=== PATIENT | female | born 1990 | race Caucasian/White ===

== ENCOUNTER 2017-04-21 22:20 | Emergency (ER) | payer MEDICARE, OTHER ==
[~2017-04-21] VITALS: Ht 157.5 cm; Wt 107.0 kg
[~2017-04-21 22:20] MED LIST: BENZ0.5T PO; BUSP15TA PO; PRAZ1CAP2 PO; RISP1TAB3 PO; SERT50TA8 PO
--- NOTE | 2017-04-21 23:09 | ED.ADGEN ---
Past History Past Medical History: Bipolar, Depression, Other Past Surgical History: No Surgical History Alcohol Use: Heavy Drug Use: Marijuana Adult General Chief Complaint Chief Complaint syncope HPI HPI Patient is a [26] year old [female] who presents with syncope. she states she fell approx 15 times today. she has been lightheaded with epigastric pain and "pouring" blood in stools. she states the blood is red and dark. she has had this for about 1 month. she is to see surgeon for colonoscopy and EGD but has been unable to f/u for it. she was dx with breast cancer 2 months ago in [place], [place] but left for a family emergency and hasn't followed up for recommendations on treatment either. she is on 15 meds but doesn't know any of them. she has a hx of WPW also. Review of Systems Review of Systems Constitutional: Denies fever or chills [] Eyes: Denies change in visual acuity, redness, or eye pain [] HENT: Denies nasal congestion or sore throat [] Respiratory: Denies cough or shortness of breath [] Cardiovascular: No additional information not addressed in HPI [] GI: Denies abdominal pain, nausea, vomiting, bloody stools or diarrhea [] : Denies dysuria or hematuria [] Musculoskeletal: Denies back pain or joint pain [] Integument: Denies rash or skin lesions [] Neurologic: Denies headache, focal weakness or sensory changes [] Endocrine: Denies polyuria or polydipsia [] Current Medications Current Medications Current Medications Medications (Trade) Dose Ordered Sig/Kenneth Start Time Stop Time Status Last Admin Dose Admin Pantoprazole Sodium (Protonix Vial) 40 mg 1X ONCE 04/21/17 23:30 04/21/17 23:31 DC 04/21/17 23:17 40 MG Sodium Chloride 1,000 ml @ 1,000 mls/hr 1X ONCE 04/21/17 23:30 04/22/17 00:29 DC 04/21/17 23:08 1,000 MLS/HR Allergies Allergies Allergies Coded Allergies Type Severity Reaction Last Updated Verified No Known Drug Allergies 11/19/14 No Physical Exam Physical Exam Constitutional: Well developed, well nourished, no acute distress, non-toxic appearance. [] HENT: Normocephalic, atraumatic, bilateral external ears normal, oropharynx moist, no oral exudates, nose normal. [] Eyes: PERRLA, EOMI, conjunctiva normal, no discharge. [] Neck: Normal range of motion, no tenderness, supple, no stridor. [] Cardiovascular:Heart rate regular rhythm, no murmur [] Lungs & Thorax: Bilateral breath sounds clear to auscultation [] Abdomen: Bowel sounds normal, soft, tenderness to epigastric and suprapubic with epigastric area being the most pain. no masses, no pulsatile masses. rectal exam showed no hemorrhoids or fissures, nontender exam, brown stool on glove [] Skin: Warm, dry, no erythema, no rash. [] Back: No tenderness, no CVA tenderness. [] Extremities: No tenderness, no cyanosis, no clubbing, ROM intact, no edema. [] Neurologic: Alert and oriented X 3, normal motor function, normal sensory function, no focal deficits noted. [] Psychologic: Affect normal, judgement normal, mood normal. [] Current Patient Data Vital Signs Vital Signs Date Time Temp Pulse Resp B/P (MAP) Pulse Ox O2 Delivery O2 Flow Rate FiO2 04/22/17 01:06 72 16 131/92 (105) 98 Room Air 04/21/17 22:20 97.4 Lab Results Laboratory Tests Test 04/21/17 22:43 04/21/17 22:54 04/21/17 22:56 White Blood Count 9.7 x10^3/uL (4.0-11.0) Red Blood Count 5.11 x10^6/uL (3.50-5.40) Hemoglobin 14.5 g/dL (12.0-15.5) Hematocrit 43.0 % (36.0-47.0) Mean Corpuscular Volume 84 fL (79-100) Mean Corpuscular Hemoglobin 28 pg (25-35) Mean Corpuscular Hemoglobin Concent 34 g/dL (31-37) Red Cell Distribution Width 12.6 % (11.5-14.5) Platelet Count 179 x10^3/uL (140-400) Neutrophils (%) (Auto) 68 % (31-73) Lymphocytes (%) (Auto) 21 % (24-48) L Monocytes (%) (Auto) 5 % (0-9) Eosinophils (%) (Auto) 5 % (0-3) H Basophils (%) (Auto) 1 % (0-3) Neutrophils # (Auto) 6.6 x10^3uL (1.8-7.7) Lymphocytes # (Auto) 2.1 x10^3/uL (1.0-4.8) Monocytes # (Auto) 0.5 x10^3/uL (0.0-1.1) Eosinophils # (Auto) 0.5 x10^3/uL (0.0-0.7) Basophils # (Auto) 0.1 x10^3/uL (0.0-0.2) Prothrombin Time 11.2 SEC (9.4-11.4) Prothrombin Time INR 1.1 (0.9-1.1) Sodium Level 141 mmol/L (136-145) Potassium Level 3.3 mmol/L (3.5-5.1) L Chloride Level 107 mmol/L (98-107) Carbon Dioxide Level 25 mmol/L (21-32) Anion Gap 9 (6-14) Blood Urea Nitrogen 14 mg/dL (7-20) Creatinine 1.1 mg/dL (0.6-1.0) H Estimated GFR (Cockcroft-Gault) 61.0 BUN/Creatinine Ratio 13 (6-20) Glucose Level 113 mg/dL (70-99) H Calcium Level 8.2 mg/dL (8.5-10.1) L Total Bilirubin 0.3 mg/dL (0.2-1.0) Aspartate Amino Transferase (AST) 19 U/L (15-37) Alanine Aminotransferase (ALT) 24 U/L (14-59) Alkaline Phosphatase 62 U/L (46-116) Total Protein 6.9 g/dL (6.4-8.2) Albumin 3.6 g/dL (3.4-5.0) Albumin/Globulin Ratio 1.1 (1.0-1.7) Stool Occult Blood Negative (NEG) Urine Collection Type Unknown Urine Color Yellow Urine Clarity Clear Urine pH 6.0 Urine Specific [place] 1.025 Urine Protein Neg (NEG-TRACE) Urine Glucose (UA) Neg mg/dL (NEG) Urine Ketones (Stick) Neg mg/dL (NEG) Urine Blood Neg (NEG) Urine Nitrite Neg (NEG) Urine Bilirubin Neg (NEG) Urine Urobilinogen Dipstick 2 mg/dL (0.2 mg/dL) Urine Leukocyte Esterase Neg (NEG) Urine RBC 0 /HPF (0-2) Urine WBC Occ /HPF (0-4) Urine Squamous Epithelial Cells Few /LPF Urine Bacteria Few /HPF (0-FEW) Urine Opiates Screen Neg (NEG) Urine Methadone Screen Neg (NEG) Urine Barbiturates Neg (NEG) Urine Phencyclidine Screen Neg (NEG) Urine Amphetamine/Methamphetamine Neg (NEG) Urine Benzodiazepines Screen Neg (NEG) Urine Cocaine Screen Neg (NEG) Urine Cannabinoids Screen Neg (NEG) Urine Ethyl Alcohol Neg (NEG) EKG EKG HR 80, [id number]. RBBB. no stemi Radiology/Procedures Radiology/Procedures NAD[] Impressions: NAD Course & Med Decision Making Course & Med Decision Making Pertinent Labs and Imaging studies reviewed. (See chart for details) PERC score is 0. pt received IVF. orthostatic BP are neg. Pt walked to bathroom without difficulty. pt has had no stool here. labs are neg. nml hemoglobin and neg hemoccult although pt states she was pouring blood in stool. no syncope here and pt has been pacing the room most of the time. pt continually asked when she could go and how much longer. finally, she was standing in doorway stating that she is ready to go home now. Pt has a normal neuro exam and no sign of trauma to scalp to indicate need for CT. no objective findings to corroborate subjective sx. educated pt on rest, hydration, and f/u for reported breast cancer and colonoscopy. she will stop naprosyn and this is causing her GERD sx and start pepcid. she will return if sx persist [] Final Impression Final Impression syncope[] Problems: Dragon Disclaimer Dragon Disclaimer This electronic medical record was generated, in whole or in part, using a voice recognition dictation system. Departure Time of Disposition: 01:16 Disposition: 01 HOME, SELF-CARE Condition: IMPROVED Patient Instructions: Syncope, [id number] Additional Instructions: push fluids. rest. Call your doctor for an appointment in 2 days. return if symptoms worsen. start pepcid 20mg morning and night for hearburn symptoms. Stop taking naprosyn for now. PAIGE NEVILLE MD Apr 21, 2017 23:09
[2017-04-21 23:18] LABS: BASO # 0.1 x10^3/uL (0.0-0.2); BASO % 1 % (0-3); EOS # 0.5 x10^3/uL (0.0-0.7); EOS % 5 % (0-3); HEMOGLOBIN 14.5 g/dL (12.0-15.5); LYMPH # 2.1 x10^3/uL (1.0-4.8); LYMPH % 21 % (24-48); MEAN CORPUSCULAR HEMOGLOBIN 28 pg (25-35); MEAN CORPUSCULAR HGB CONC 34 g/dL (31-37); MEAN CORPUSCULAR VOLUME 84 fL (79-100); MONO # 0.5 x10^3/uL (0.0-1.1); MONO % 5 % (0-9); NEUT # 6.6 x10^3uL (1.8-7.7); NEUT % 68 % (31-73); PLATELET COUNT 179 x10^3/uL (140-400); RED BLOOD COUNT 5.11 x10^6/uL (3.50-5.40); RED CELL DISTRIBUTION WIDTH 12.6 % (11.5-14.5); WHITE BLOOD COUNT 9.7 x10^3/uL (4.0-11.0)
[2017-04-21 23:27] LABS: ALBUMIN 3.6 g/dL (3.4-5.0); ALBUMIN/GLOBULIN RATIO 1.1 (1.0-1.7); CALCIUM 8.2 mg/dL (8.5-10.1); CREATININE 1.1 mg/dL (0.6-1.0); POTASSIUM 3.3 mmol/L (3.5-5.1); TOTAL BILIRUBIN 0.3 mg/dL (0.2-1.0); TOTAL PROTEIN 6.9 g/dL (6.4-8.2)
[2017-04-21] MEDS ORDERED: IV NORMAL SALINE 1,000ML 1,000 ML IV ONE (23:30)
[2017-04-21] MEDS ORDERED: PANTOPRAZOLE IV PUSH 40 MG VIAL. IVP ONE (23:30)
[2017-04-21 23:31] LABS: FECAL OB PT NEGATIVE (NEG)
[2017-04-22 00:30] LABS: BARBITURATES NEG (NEG); BENZODIAZEPINES NEG (NEG); CANNABINOIDS NEG (NEG); COCAINE NEG (NEG); METHADONE NEG (NEG); OPIATES NEG (NEG); PHENCYCLIDINE NEG (NEG)
[2017-04-22 00:32] LABS: AMPHETAMINE/METHAMPHETAMINE NEG (NEG)
[2017-04-22 00:45] LABS: CLARITY,URINE CLEAR; COLOR,URINE YELLOW; GLUCOSE,URINE NEG (NEG)
[2017-04-22 00:47] LABS: BILIRUBIN,URINE NEG (NEG)
[2017-04-22 00:48] LABS: BACTERIA,URINE FEW /HPF (0-FEW); NITRITE,URINE NEG (NEG); RBC,URINE 0 /HPF (0-2); SQUAMOUS EPITHELIAL CELL,UR FEW /LPF; UROBILINOGEN,URINE 2 mg/dL (0.2 mg/dL); WBC,URINE OCC /HPF (0-4)
[2017-04-22 01:06] VITALS: BP 131/92
--- NOTE | 2017-04-22 06:53 | EKG ---
[address] [address] Test Date: 2017-04-21 Test Time: 22:37:30 Pat Name: KRISTEN BRAR Department: Room: Gender: F [employer]: AMANDO : 1990 Requested By: PAIGE NEVILLE Order Number: [id number] Reading MD: Nick Christensen Measurements Intervals [place] Rate: 80 P: 0 NH: 122 QRS: 26 QRSD: 112 T: 35 QT: 380 QTc: 442 Interpretive Statements SINUS RHYTHM RBBB Electronically Signed On 04-23-2017 9:17:14 CDT by Nick Christensen
--- NOTE | 2017-04-22 07:42 | RAD ---
EXAM: Chest one view. HISTORY: Chest pain, shortness of breath, syncope. COMPARISON: None. FINDINGS: A frontal view of the chest is obtained. There are no confluent infiltrates. There is no pneumothorax or pleural effusion. The heart is not enlarged. IMPRESSION: 1. No confluent infiltrates.
== END 2017-04-22 01:20 | disposition home or self-care (01) ==
LOC: ER 22:20
DX: R55 Syncope and collapse (principal); R10.13 Epigastric pain; F12.10 Cannabis abuse, uncomplicated; F10.10 Alcohol abuse, uncomplicated; F31.9 Bipolar disorder, unspecified
CPT/HCPCS: 36415; 71010; 80053; 80305; 80320; 81001; 82274; 85027; 85610; 93005; 96361; 96374; 99285; C9113; G0480; G0481; J7030